=== PATIENT | female | born 1945 | race Caucasian/White ===

== ENCOUNTER 2017-02-10 09:02 | Outpatient (CLI) | payer MEDICARE, OTHER ==
[~2017-02-10] VITALS: Ht 158.8 cm; Wt 81.4 kg
--- NOTE | ~2017-02-10 | HEMODYNAMI ---
PATIENT:JACQUI WEATHERS MEDICAL RECORD: [id number] : 45 LOCATION:DTEJAL ADMISSION DATE: 02/10/17 Generatedon:02/10/201714:54 Patient name: JACQUI WEATHERS Patient #: [id number] SSN: : 1945 Date of study: 02/10/2017 Page: Of Hemodynamic Procedure Report Patient Data Patient Demographics Procedure consent was obtained First Name: JACQUI Gender: Female Last Name: JASIEL : 1945 [facility] Initial: C Age: 71 year(s) Patient #: [id number] Race: Unknown Additional ID: [id number] Contact details [address]: [address] [place] [address] State: [place] City: [place] Zip code: [address] Past Medical History Allergies Allergen Reaction Date Comments Reported Iodine 02/10/2017 Sulfa drugs 02/10/2017 Admission Admission Data Admission Date: 02/10/2017 Admission Time: 9:02 Height (in.): 64 BSA: 1.87 (m2) Height (cm.): 162.56 BMI: 30.72 (kg/m2) Weight (lbs.): 179 Weight (kg.): 81.19 Lab Results Lab Result Date: 02/10/2017 Lab Result Time: 0:00 Biochemistry Name Units Result Min Max BUN mg/dl 21 --(----)-* 7 18 Creatinine mg/dl 0.8 --(-*--)-- 0.6 1.3 CBC Name Units Result Min Max Hemoglobin g/dl 12.1 *-(----)-- 13.5 17.5 Procedure Procedure Types Cath Procedure Diagnostic Procedure [facility] w/Coronaries PCI Procedure Coronary Stent Initial Miscellaneous Procedures Moderate Sedation up to 15 minutes Procedure Description Procedure Date Procedure Date: 02/10/2017 Procedure Start Time: 14:38 Procedure End Time: 14:54 Procedure Staff Name Function Rob Gutierrez MD Performing Physician Ligia Brower RT Scrub Maico Gan RN Nurse Kamari Lamb RT Monitor Procedure Data Cath Procedure Fluoroscopy Diagnostic fluoroscopy Total fluoroscopy Time: 3.7 time: 3.7 min min Diagnostic fluoroscopy Total fluoroscopy dose: 726 dose: 726 mGy mGy Contrast Material Contrast Material Type Amount (ml) Isovue 300 91 Entry Location Entry Primary Successful Side Size Upsize Upsize Entry Closure Castillo ccessful Closure Location (Fr) 1 (Fr) 2 (Fr) Remarks Device Remarks Radial Right 6 Fr Mechanical artery Short Compression Estimated blood loss: 10 ml Diagnostic catheters Device Type Used For End Catheter Placement Terumo 5Fr Dale 110cm Procedure catheter Procedure Medications Medication Administration Route Dosage Oxygen NC 2 l/min Heparin Flush Bag added to field 2 bags (1000units/500ml NS) 0.9% NaCl I.V. 100 ml/hr Radial Cocktail added to field 1 syringe (Verapomil 2mg/Nitro 400mcg/Heparin 1500units) Fentanyl I.V. 50 mcg Versed I.V. 1 mg Fentanyl I.V. 50 mcg Versed I.V. 1 mg Radial Cocktail I.A. 1 syringe (Verapomil 2mg/Nitro 400mcg/Heparin 1500units) Heparin Bolus I.V. 4000 units Hemodynamics Rest BSA: 1.87 (m2) HGB: 12.1 (g/dl) O2 Consumption: Estimated: 174.56 (ml/min) O2 Co nsumption indexed: Estimated:93.35 (ml/min/m) Heart Rate: 74 (bpm) Pressure Samples Time Site Value (mmHg) Purpose Heart Use Rate(bpm) 14:41 LV 107/7,13 Snapshot 78 Snapshots Pre Cath Intra NCS Post Cath Vital Signs Time Heart Resp SPO2 NIBP (mmHg) Rhythm Pain Sedation Rate (ipm) (%) Status Level (bpm) 14:26:18 72 18 94 134/70(125) NSR 0 (11) 10(A) , No pain 14:30:30 70 18 94 115/66(88) NSR 0 (11) 10(A) , No pain 14:34:47 67 18 96 106/61(82) NSR 0 (11) 10(A) , No pain 14:38:54 72 17 96 121/69(95) NSR 0 (11) 9(A) , No pain 14:43:10 74 17 94 111/62(78) NSR 0 (11) 9(A) , No pain 14:47:22 74 17 94 109/61(85) NSR 0 (11) 9(A) , No pain 14:51:34 73 17 95 110/62(84) NSR 0 (11) 9(A) , No pain 14:53:15 73 17 95 112/57(93) NSR 0 (11) 9(A) , No pain Medications Time Medication Route Dose Verified Delivered Reason Notes Effectiveness by by 14:29:21 Oxygen NC 2 l/min Maico Nina Per Malik Gan RN physician RN 14:29:29 Heparin Flush added 2 bags Maico Nina used for Bag to Malik Gan RN procedure (1000units/500ml RN NS) 14:29:39 0.9% NaCl I.V. 100 Maico Nina Per ml/hr Malik Gan RN physician RN 14:29:46 Radial Cocktail added 1 Maico Nina used for (Verapomil to syringe Malik Gan RN procedure 2mg/Nitro RN 400mcg/Heparin 1500units) 14:35:54 Fentanyl I.V. 50 mcg Maico Nina for sedation Malik Gan RN RN 14:36:01 Versed I.V. 1 mg Maico Nina for sedation Malik Gan RN RN 14:40:30 Fentanyl I.V. 50 mcg Maico Gandhiy for sedation Malik Gan RN RN 14:40:33 Versed I.V. 1 mg Maico Nina for sedation Malik Gan RN RN 14:40:40 Radial Cocktail I.A. 1 Maico Rivas for (Verapomil syringe Malik Gutierrez MD vasodilation 2mg/Nitro RN 400mcg/Heparin 1500units) 14:46:19 Heparin Bolus I.V. 4000 Maico Nina for units Malik Gan RN antiplatelet RN therapy Procedure Log Time Note 14:10:00 Ligia MONTES(R) sent for patient. Start room use. 14:11:39 Patient Height : 162.56 cm 14:11:45 Patient Weight : 81.19 kg 14:25:10 Vital chart was started 14:26:56 Diagnostic Cath status Elective 14:27:13 Time tracking: Regular hours 14:27:18 Plan of Care:Hemodynamics will remain stable., Cardiac rhythm will remain stable., Comfort level will be maintained., Respiratory function will remain adequate., Patient/ family verbilizes understanding of procedure., Procedure tolerated without complication., Recovers from procedure without complications.. 14:27:23 Patient received from Pre/Post Procedure Room to CCL 2 Alert and oriented. Tansferred to table in Supine position. 14:27:25 Warm blankets applied, and alfa hugger turned on for patient comfort. 14::26 Correct patient and procedure confirmed by team. 14::28 Signed procedure consent form obtained from patient. 14::29 ECG and BP/O2 sat monitors applied to patient. 14:27:30 Baseline sample Acquired. 14:27:36 Rhythm: sinus rhythm 14::37 Full Disclosure recording started 14::58 H&P Date Dictated: 02/07/2017 Within 30 days and on chart., H&P Addendum completed by physician on day of procedure. (MUST COMPLETE FOR ALL OUTPATIENTS). 14:28:00 Pre-procedure instructions explained to patient. 14:28:03 Pre-op teaching completed and patient verbalized understanding. 14:28:11 Family in waiting room. 14:28:13 Patient NPO since Midnight. 14:28:21 Patient allergic to Iodine 14:28:25 Patient allergic to Sulfa drugs 14:28:38 Is the patient allergic to Iodine/contrast media? Yes. 14:28:39 Was the patient premedicated? Yes 14:28:41 Is patient on blood thinner?Yes 14:28:44 ACC The patient was administered the following blood thiners within the last 24 hours: ACCPlavix 14:29:21 Oxygen 2 l/min NC was administered by Maico Gan RN; Per physician; 14:29:29 Heparin Flush Bag (1000units/500ml NS) 2 bags added to field was administered by Maico Gan RN; used for procedure; 14::39 0.9% NaCl 100 ml/hr I.V. was administered by Maico Gan RN; Per physician; 14:29:46 Radial Cocktail (Verapomil 2mg/Nitro 400mcg/Heparin 1500units) 1 syringe added to field was administered by Maico Gan RN; used for procedure; 14:29:59 Patient diabetic? No. 14:30:02 Patient not . Patient is over age 55. 14:30:04 ----Pre-sedation anethsthesia assessment.---- 14:30:06 Previous problem with sedation/anesthesia? No ? 14:30:07 Snore? Yes 14:30:09 Sleep apnea? No 14:30:10 Deviated septum? No 14:30:10 Opens mouth fully? Yes 14:30:12 Sticks out tongue? Yes 14:30:14 Airway obstruction? No ? 14:30:18 Dentures? No ? 14:30:24 Pre procedure: right dorsailis pedis pulse 1+ Palpable, but thready & weak; easily obliterated 14:30:28 Modified Jose's test Ulnar < 7 seconds 14:30:31 Patient pain scale 0/10 ?. 14:30:37 IV patent on arrival in left wrist with 0.9% NaCl at [facility]. 14:33:28 Lab Result : BUN 21 mg/dl 14:33:28 Lab Result : Hemoglobin 12.1 g/dl 14:33:28 Lab Result : Creatinine 0.8 mg/dl 14:33:33 Lab results completed and on chart. 14:33:38 Right Radial & Right Groin area was prepped with chlora-prep and draped in sterile fashion 14:33:40 Alarms reviewed by R. N. 14:33:41 Sharps counted by scrub and verified by R.N. 14:33:56 Use device set Radial Dx 14:33:57 Acist Syringe opened to sterile field. 14:33:58 Medline Cath Pack opened to sterile field. 14:33:59 Bag Decanter opened to sterile field. 14:33:59 Terumo 6Fr Slender Glidesheath opened to sterile field. 14:34:00 St Juliano 260cm J .035 wire opened to sterile field. 14:34:01 Acist Hand Control opened to sterile field. 14:34:01 Acist Manifold opened to sterile field. 14:34:02 Tegaderm 4 x 4 opened to sterile field. 14:34:03 MBrace Wrist Support opened to sterile field. 14:34:43 Physician arrived 14:34:44 --------ALL STOP TIME OUT------ 14:34:44 Final Timeout: patient, procedure, and site verified with staff and physician. All members of the team are in agreement. 14:34:47 Right Radial & Right Groin site verified by team. 14:34:52 Physical assessment completed. ASA score P 2 - A patient with mild systemic disease as per Rob Gutierrez MD. 14:35:00 Sedation plan: IV Moderate Sedation Versed, Fentanyl 14:35:54 Fentanyl 50 mcg I.V. was administered by Maico Gan RN; for sedation; 14:36:01 Versed 1 mg I.V. was administered by Maico Gan RN; for sedation; 14:38:47 Procedure started. 14:38:54 Local anesthetic to right radial artery with Lidocaine 2% by Rob Gutierrez MD.INITIAL ACCESS ONLY 14:39:59 A 6 Fr Short sheath was inserted into the Right Radial artery 14:40:30 Fentanyl 50 mcg I.V. was administered by Maico Gan RN; for sedation; 14:40:33 Versed 1 mg I.V. was administered by Maico Gan RN; for sedation; 14:40:40 Radial Cocktail (Verapomil 2mg/Nitro 400mcg/Heparin 1500units) 1 syringe I.A. was administered by Rob Gutierrez MD; for vasodilation; 14:40:45 A Amind 5Fr Dale 110cm catheter was advanced over the wire and used for Procedure. 14:40:52 Zero performed for pressure channel P1 14:41:35 LV hemodynamics recorded. 14:41:36 LV gram done using CASE 14:41:44 EF : 60 % 14:42:25 LCA angiography performed. 14:44:37 RCA angiography performed. 14:44:47 Merit BasixCompak Inflation Kit opened to sterile field. 14:44:48 Juarez Whisper J 300cm 0.014 guide wire opened to sterile field. 14:44:51 Cordis 6FR XBLAD 3.5 guide catheter opened to sterile field. 14:44:54 Catheter removed. 14:44:54 Proceeding to intervention. 14:45:25 Procedure type changed to Cath procedure, Diagnostic procedure, LHC, LHC w/Coronaries, PCI procedure, Coronary Stent Initial, Miscellaneous Procedures, Moderate Sedation up to 15 minutes 14:46:19 Heparin Bolus 4000 units I.V. was administered by Maico Gan RN; for antiplatelet therapy; 14:46:23 6 Fr XBLAD 3.5 guide catheter was inserted over the wire 14:46:38 LESION IN THE DIAGONAL 14:46:45 WHISPER wire advanced. 14:46:56 Wire advanced across lesion. 14:49:13 Inflation Number: 1 A Conner OTW 2.5 x 15 stent was prepped and advanced across the 1st Diag. The stent was deployed at 9 CRISTINO for 0:10 (min:sec). 14:50:42 Stent catheter was removed intact over wire. 14:50:43 Wire removed. 14:50:48 Guide catheter removed. 14:51:15 Terumo TR Band Standard opened to sterile field. 14:51:27 Sheath removed intact; hemostasis achieved with Mechanical Compression to the Right Radial artery. 14:51:29 Procedure ended.(Physican Out) 14:51:40 Fluoroscopy time 03.70 minutes. 14:51:44 Fluoroscopy dose: 726 mGy 14:51:44 Flurop Dose total: 726 14:51:49 Contrast amount:Isovue 300 91ml. 14:51:58 TR band inflated with 10cc of air. 14:52:43 Insertion/operative site no bleeding no hematoma. 14:52:49 Post right radial artery:stable 14:52:55 Post-procedure physical assessment completed. ASA score P 2 - A patient with mild systemic disease as per Rob Gutierrez MD. 14:52:58 Post procedure rhythm: sinus rhythm 14:53:10 Estimated blood loss: 10 ml 14:53:14 Post procedure instruction explained to patient.Patient verbalizes understanding. 14:53:15 Patient needs reinforcement of post procedure teaching. 14:53:35 Procedure and supply charges have been captured, reviewed, submitted and are correct. 14:53:48 Vital chart was stopped 14:53:49 See physician's report for complete and final results. 14:53:51 Report given to Pre/Post Procedure Room. 14:53:54 Patient transfered to Pre/Post Procedure Room with Stretcher. 14:54:02 Procedure ended. 14:54:02 Full Disclosure recording stopped 14:54:07 End room use (Document Last) Intervention Summary Intervention Notes Time ActionType Lesion and Equipment Action# Pressure Duration Attributes Used 14:49:13 Place stent 1st Diag Alcolu OTW 1 9 00:10 2.5 x 15 stent Device Usage Item Name Manufacture Quantity Catalog Hospital Part Current Minimal Lot# / Number Charge Number Stock Stock Serial# Code Acist Acist 1 64181 646742 938306 570504 20 Syringe Medical Systems Inc Medline Cardinal 1 [id number] 129298 25335 918400 5 Cath Pack Health Bag Microtek 1 2001S 414732 12641 705331 5 Decanter Medical Inc. Terumo 6Fr Terumo 1 [id number] 416157 764868 325324 [address] St Juliano 1 896676 647915 773442 441854 30 260cm J .035 wire Acist Hand Acist 1 71252 361408 085691 068844 5 Control Medical Systems Inc Acist Acist 1 22396 787334 708974 591195 5 Manifold Medical Systems Inc Tegaderm 4 3M 1 1626W 430788 258881 691546 5 x 4 MBrace Advanced 1 140-0250-00 240467 25875 026169 5 Wrist Vascular Support Dynamics Terumo 5Fr Terumo 1 405023 640973 070673 380560 5 Dale 110cm catheter Merit Merit 1 [id number] 682352 190909 872758 15 BasixCompak Medical Inflation Kit Juarez Juarez 1 [id number] 010388 349721 312577 5 Whisper J Vascular 300cm 0.014 guide wire Cordis 6FR Cardinal 1 [id number] 913728 221248 689225 10 XBLAD 3.5 Health guide catheter Alcolu OTW Medtronic 1 [id number] 396953 50853 482214 5 [id number] 2.5 x 15 stent Terumo TR Terumo 1 [id number] 930058 744723 951230 40 Band Standard Signature Audit [place] Stage Time Signature Unsigned Intra-Procedure 02/10/2017 Kamari Lamb 2:54:33 PM RT(R) (CV) Signatures Monitor : Kamari Lamb RT Signature : Date : Time : [facility] [address] [facility] [place] [address]
[~2017-02-10 09:02] MED LIST: BAYER CHEWABLE81 MG PO; BENICAR HCT 40-1 TA1 PO; PLAVIX75 MG PO; TRIGLIDE160 MG PO
[2017-02-10] MEDS ORDERED: PREDNISONE1 MG PO (10:48)
[2017-02-10] MEDS ORDERED: K-TAB10 MEQ PO (10:49)
[2017-02-10] MEDS ORDERED: ZOVIRAX800 MG PO (10:50)
[2017-02-10 10:57] VITALS: BP 152/68; Ht 158.8 cm; Wt 81.4 kg
[2017-02-10 11:21] LABS: BASOPHILS 0.2 % (0-2); EOSINOPHILS 2.7 % (0-7); HEMATOCRIT 37.3 % (36.0-48.0); HEMOGLOBIN 12.1 g/dL (12-16); IMMATURE GRANULOCYTES 0.2 % (0-5); LYMPHOCYTES 21.8 % (15-50); MCH 30.9 pg (26.0-34.0); MCHC 32.4 g/dL (31.0-37.0); MCV 95.4 fL (80.0-100.0); MEAN PLATELET VOLUME 9.2 fL (7.4-10.4); MONOCYTES 9.6 % (2-11); NEUTROPHILS 65.5 % (40-80); PLATELET COUNT 259 10x3/uL (130-400); RBC 3.91 10x6/uL (4.00-5.40); RDW 13.9 % (11.5-14.5); WBC 8.5 10x3/uL (4.8-10.8)
[2017-02-10 11:52] LABS: CALC OSMOLALITY 283 mosm/kg (275-300); CARBON DIOXIDE 29.4 mmol/L (21.0-32.0); CHLORIDE - SERUM 104 mmol/L (98-107); CREATINE KINASE 80 UL (21-215); CREATININE - SERUM 0.8 mg/dL (0.6-1.3); GLUCOSE 92 mg/dL (74-106); POTASSIUM - SERUM 3.5 mmol/L (3.5-5.1); SODIUM 141 mmol/L (136-145); UREA NITROGEN 21 mg/dL (7-18); eGFR NON AFRICAN AMERICAN 75 mL/min (90-120)
[2017-02-10 11:55] LABS: TROPONIN-I < 0.017 ng/mL (0.000-0.060)
[2017-02-10 12:28] LABS: CKMB 1.2 U/L (0.0-3.6)
--- NOTE | 2017-02-10 15:20 | NUR ---
2L NC, NO RESP DISTRESS NOTED. RIGHT WRIST TR BAND CDI, NO BLEEDING OR HEMATOMA NOTED. SANDWICH TRAY AND DRINK GIVEN, NO C/O NAUSEA. DENIES ANY CHEST PAIN. VSS. CALL LIGHT WITHIN REACH.
--- NOTE | 2017-02-10 15:50 | NUR ---
RESTING QUIETLY. 2L NC, NO RESP DISTRESS. RIGHT WRIST TR BAND CDI, NO BLEEDING OR HEMATOMA NOTED. DENIES ANY CHEST PAIN OR NAUSEA. VSS. CALL LIGHT WITHIN REACH.
--- NOTE | 2017-02-10 16:05 | NUR ---
2L NC, NO RESP DISTRESS. RIGHT WRIST TR BAND CDI, NO BLEEDING NOTED. NO NEEDS VOICED AT THIS TIME. VSS. WILL CONTINUE TO MONITOR.
--- NOTE | 2017-02-10 16:35 | NUR ---
QUIETLY RESTING WITH NO C/O. RIGHT WRIST TR BAND CDI, NO BLEEDING NOTED. VSS.
--- NOTE | 2017-02-10 17:05 | NUR ---
ROOM AIR, NO RESP DISTRESS. RIGHT WRIST TR BAND CDI, NO BLEEDING NOTED. NO C/O PAIN OR NAUSEA. VSS. FAMILY AT BEDSIDE.
--- NOTE | 2017-02-10 18:00 | NUR ---
2CC OF AIR REMOVED FROM TR BAND, NO BLEEDING NOTED.
--- NOTE | 2017-02-10 18:16 | NUR ---
3CC OF AIR REMOVED FROM TR BAND, NO BLEEDING NOTED.
--- NOTE | 2017-02-10 18:30 | NUR ---
3CC OF AIR REMOVED FROM TR BAND, NO BLEEDING NOTED. UP TO RESTROOM TO VOID.
--- NOTE | 2017-02-10 18:45 | NUR ---
LEFT AC PIV D/C'D WITH CATHETER INTACT, BAND AID TO SITE. UP TO GET DRESSED.
--- NOTE | 2017-02-10 18:52 | NUR ---
DISCHARGE INSTRUCTIONS GIVEN, VERBALIZED UNDERSTANDING.
--- NOTE | 2017-02-10 19:00 | NUR ---
TAKEN OUT VIA WHEELCHAIR BY CATH WAISTLINE JOINER LOCKSTITCH. LEFT FACILITY WITH FAMILY MEMBER AND ALL PERSONAL BELONGINGS.
--- NOTE | 2017-02-17 09:42 | OP ---
PATIENT NAME: JACQUI WEATHERS MEDICAL RECORD: [id number] :45 LOCATION:D.CAT ADMISSION DATE: SURGEON: GUNNER GLYNN MD DATE OF OPERATION: 02/10/2017 PROCEDURES: 1. PTCA stent LAD diagonal. 2. Left heart catheterization. 3. Selective coronary angiography. 4. Left ventriculogram. INDICATION: Angina and coronary artery disease. PROCEDURE IN DETAIL: After informed consent was obtained and after a detailed explanation of risks, benefits as well as alternative therapies, the patient elected to proceed with angiogram and angioplasty. The right radial area was prepped and draped in normal sterile fashion. The right radial artery was cannulated via modified Seldinger technique with placement of 6-Malay sheath. All catheters exchanged through this sheath. FINDINGS: The left ventriculogram was performed in standard 30-degree CASE view, reveals good cardiac wall motion throughout all segments. Overall ejection fraction estimated 60%. SELECTIVE CORONARY ANGIOGRAPHY: 1. Left main showed no significant angiographic disease. 2. Left anterior descending has previously placed stent. This is widely patent. However, the LAD diagonal, which is actually larger than the LAD has 80% stenosis. 3. The left circumflex has moderate irregularities, but no flow-limiting stenosis. 4. Right coronary has moderate irregularities, but no flow-limiting stenosis. PTCA STENT OF THE LAD DIAGONAL: The stent used was a 2.5 x 15 mm Conner. The result was 0% residual stenosis. OVERALL IMPRESSION: Successful percutaneous transluminal coronary angioplasty stent of the left anterior descending diagonal going from 80% initial stenosis to 0% residual stenosis. TRANSINT:[id number] Voice Confirmation ID: [id number] DOCUMENT ID: [id number] GUNNER GLYNN MD at 0942 CC: [id number] DICTATION DATE: 02/10/17 1457 TANK TRUCK DRIVER: 02/10/17 2209 [facility] CLI 02/10/17 [place] [id number] [place] [address]
== END 2017-02-10 19:00 | disposition home or self-care (01) ==
LOC: D.CATH 09:02
PROVIDERS: Internal Medicine Interventional Cardiology
DX: I25.119 Atherosclerotic heart disease of native coronary artery with unspecified angina pectoris (principal); I10 Essential (primary) hypertension; E78.5 Hyperlipidemia, unspecified; Z01.812 Encounter for preprocedural laboratory examination
CPT/HCPCS: 93458; C9600

== ENCOUNTER 2017-09-15 09:07 | Outpatient (CLI) | payer MEDICARE, OTHER ==
[~2017-09-15] VITALS: Ht 160 cm; Wt 79.1 kg
--- NOTE | ~2017-09-15 | OP ---
PATIENT NAME: JACQUI WEATHERS MEDICAL RECORD: [id number] :45 LOCATION:D.CAT ADMISSION DATE: SURGEON: GUNNER GLYNN MD DATE OF OPERATION: 09/15/2017 PROCEDURES: 1. PTCA stent LAD. 2. PTCA LAD diagonal. 3. Left heart catheterization. 4. Selective coronary angiography. 5. Left ventriculogram. INDICATION: Angina and coronary artery disease. PROCEDURE IN DETAIL: After informed consent was obtained and after a detailed explanation of risks, benefits as well as alternative therapies, the patient elected to proceed with angiogram and angioplasty. The right radial area was prepped and draped in normal sterile fashion. Right radial artery was cannulated via modified Seldinger technique with placement of a 6-Austrian sheath. All catheters exchanged through this sheath. FINDINGS: The left ventriculogram was performed in standard 30-degree CASE view, reveals good cardiac wall motion throughout all segments. Overall ejection fraction estimated at 60%. SELECTIVE CORONARY ANGIOGRAPHY: 1. Left main is with no significant angiographic disease. 2. Left anterior descending has previously placed stent that is widely patent as is the diagonal. The LAD has 70+ percent stenosis after the previously placed stent. 3. Right coronary artery has moderate irregularities, but no flow-limiting stenosis. 4. The left circumflex has moderate irregularities, but no flow-limiting stenosis. PTCA STENT OF THE LAD: The stent used is a 2.5 x 8 mm Conner. This caused plaque shift into the diagonal. We ballooned this with a 2.5 balloon. Result was 0% residual throughout. OVERALL IMPRESSION: Successful percutaneous transluminal coronary angioplasty stent of the left anterior descending going from 80% initial stenosis to 0% residual. TRANSINT:[id number] Voice Confirmation ID: [id number] DOCUMENT ID: [id number] GUNNER GLYNN MD at 1202 CC: [id number] DICTATION DATE: 09/15/17 1308 RN MEDICAL INPATIENT SERVICES: 09/15/17 1319 [facility]P CLI 09/15/17 [place] [id number]
--- NOTE | ~2017-09-15 | HEMODYNAMI ---
PATIENT:JACQUI WEATHERS MEDICAL RECORD: [id number] : 45 LOCATION:[facility] ADMISSION DATE: 09/15/17 Generatedon:09/15/201713:08 Patient name: JACQUI WEATHERS Patient #: [id number] : 1945 Date of study: 09/15/2017 Page: Of Hemodynamic Procedure Report Patient Data Patient Demographics Procedure consent was obtained First Name: JACQUI Gender: Female Last Name: JASIEL : 1945 Middle Initial: C Age: 72 year(s) Patient #: [id number] Race: Ethnicity: or SSN: [id number] Additional ID: [id number] Contact details [address]: [address] [place] [address] State: [place] City: [place] Zip code: [address] Past Medical History Allergies Allergen Reaction Date Comments Reported Iodine 02/10/2017 Sulfa drugs 02/10/2017 Other allergy 09/15/2017 Sulfa, Betadine Admission Admission Data Admission Date: 09/15/2017 Admission Time: 9:07 Arrival Date: 09/15/2017 Arrival Time: 11:00 Admit Source: Other Insurance Payor: Medicare Height (in.): 64 BSA: 1.85 (m2) Height (cm.): 162.56 BMI: 30.04 (kg/m2) Weight (lbs.): 175 Weight (kg.): 79.38 Lab Results Lab Result Date: 09/15/2017 Lab Result Time: 0:00 Biochemistry Name Units Result Min Max BUN mg/dl 27 --(----)-* 7 18 Creatinine mg/dl 0.7 --(*---)-- 0.6 1.3 CBC Name Units Result Min Max Hemoglobin g/dl 12.1 *-(----)-- 13.5 17.5 Procedure Procedure Types Cath Procedure Diagnostic Procedure LHC [facility] w/Coronaries Sedation Charges Moderate Sedation up to 15 minutes PCI Procedure Coronary Stent Coronary Stent Initial PTCA PTCA Additional Procedure Description Procedure Date Procedure Date: 09/15/2017 Procedure Start Time: 12:46 Procedure End Time: 13:06 Procedure Staff Name Function Rob Gutierrez MD Performing Physician Jessica Black RT Monitor Heron Linares RN Nurse Ligia Brower RT Scrub Procedure Data Cath Procedure Fluoroscopy Diagnostic fluoroscopy Total fluoroscopy Time: 6.1 time: 6.1 min min Diagnostic fluoroscopy Total fluoroscopy dose: 620 dose: 620 mGy mGy Contrast Material Contrast Material Type Amount (ml) Isovue 300 86 Entry Location Entry Primary Successful Side Size Upsize Upsize Entry Closure Castillo ccessful Closure Location (Fr) 1 (Fr) 2 (Fr) Remarks Device Remarks Radial Right 6 Fr Mechanical artery Short Compression Estimated blood loss: 5 ml Diagnostic catheters Device Type Used For End Catheter Placement DIAGNOSTIC [place] 110cm 5 Multi-vessel Fr catheter ([id number]) Angiography Procedure Complications No complications Procedure Medications Medication Administration Route Dosage Oxygen NC 2 l/min Lidocaine 2% added to field 20 Heparin Flush Bag added to field 2 bags (1000units/500ml NS) 0.9% NaCl I.V. 100 ml/hr Zofran I.V. 4 mg Versed I.V. 1 mg Fentanyl I.V. 50 mcg Radial Cocktail I.A. 1 syringe (Verapomil 2mg/Nitro 400mcg/Heparin 1500units) Versed I.V. 1 mg Fentanyl I.V. 50 mcg Heparin Bolus I.V. 4000 units Fentanyl I.V. 50 mcg Hemodynamics Rest BSA: 1.85 (m2) O2 Consumption: Estimated: 167.3 (ml/min) O2 Consumption indexed: Estimated:90.43 (ml/min/m) Heart Rate: 67 (bpm) Pressure Samples Time Site Value (mmHg) Purpose Heart Use Rate(bpm) 12:49 LV 62/37,48 Snapshot 62 Snapshots Pre Cath Intra NCS Post Cath Vital Signs Time Heart Resp SPO2 etCO2 NIBP Rhythm Pain Sedation Rate (ipm) (%) (mmHg) (mmHg) Status Level (bpm) 12:39:30 52 25 96 37.1 100/63(75) NSR 0 (11) 10(A) , No pain 12:43:35 53 14 98 34.8 106/63(75) NSR 0 (11) 10(A) , No pain 12:47:43 58 25 99 40 119/67(90) NSR 0 (11) 9(A) , No pain 12:51:53 59 16 94 37.8 92/51(69) NSR 0 (11) 9(A) , No pain 12:55:59 57 15 96 39.3 102/56(76) NSR 0 (11) 9(A) , No pain 13:00:09 58 16 97 38.6 99/54(71) NSR 0 (11) 9(A) , No pain 13:04:17 58 16 97 39.3 97/60(75) NSR 0 (11) 10(A) , No pain Medications Time Medication Route Dose Verified Delivered Reason Note s Effectiveness by by 12:31:38 Oxygen NC 2 l/min Rob Buffie used for Brenda Linares RN procedure 12:31:44 Lidocaine 2% added 20ml Rob Rob for local to vial Brenda Gutierrez MD anesthetic field 12:31:54 Heparin Flush added 2 bags Robben Rivas used for Bag to Brenda Gutierrez MD procedure (1000units/500ml field NS) 12:32:03 0.9% NaCl I.V. 100 Robben Phippsie Per physician ml/hr Brenda Linares RN 12:32:18 Zofran I.V. 4 mg Rob Shelby Per physician pt Brenda Linares RN states history of vomiting with sedation 12:45:26 Versed I.V. 1 mg Rob Phippsie for sedation Brenda Linares RN 12:45:33 Fentanyl I.V. 50 mcg Rob Shelby for sedation Brenda Linares RN 12:48:23 Radial Cocktail I.A. 1 Rob Rob for (Verapomil syringe Brenda Gutierrez MD vasodilation 2mg/Nitro 400mcg/Heparin 1500units) 12:48:54 Versed I.V. 1 mg Rob Phippsie for sedation Brenda Linares RN 12:48:57 Fentanyl I.V. 50 mcg Rob Phippsie for sedation Brenda Linares RN 12:52:22 Heparin Bolus I.V. 4000 Robben Phippsie for veri fied units Brenda Linares RN anticoagulation with dr gutierrez 12:58:20 Fentanyl I.V. 50 mcg Rob Phippsie for sedation Brenda Linares RN Procedure Log Time Note 12:15:27 Informed consent obtained and on chart 12:20:32 Patient Height : 64 inches 12:20:37 Patient Weight : 175 lbs 12:20:47 Diagnostic Cath status Elective 12:20:51 Jessica Black RT(R) sent for patient. Start room use. 12:20:52 Time tracking: Regular hours 12:20:58 Plan of Care:Hemodynamics will remain stable., Cardiac rhythm will remain stable., Comfort level will be maintained., Respiratory function will remain adequate., Patient/ family verbilizes understanding of procedure., Procedure tolerated without complication., Recovers from procedure without complications.. 12:21:03 Patient received from Pre/Post Procedure Room to CCL 2 Alert and oriented. Tansferred to table in Supine position. 12:21:04 Warm blankets applied, and alfa hugger turned on for patient comfort. 12:21:07 Correct patient and procedure confirmed by team. 12:21:34 H&P Date Dictated: 09/12/2017 Within 30 days and on chart.. 12:23:22 Family in waiting room. 12:23:23 Patient NPO since Midnight. 12:24:01 Patient allergic to Other allergySulfa, Betadine 12:31:38 Oxygen 2 l/min NC was administered by Heron Linares RN; used for procedure; 12::44 Lidocaine 2% 20ml vial added to field was administered by Rob Gutierrez MD; for local anesthetic; 12:31:54 Heparin Flush Bag (1000units/500ml NS) 2 bags added to field was administered by Rob Gutierrez MD; used for procedure; 12:32:03 0.9% NaCl 100 ml/hr I.V. was administered by Heron Linares RN; Per physician; 12:32:18 Zofran 4 mg I.V. was administered by Heron Linares RN; Per physician; pt states history of vomiting with sedation 12:32:21 Is the patient allergic to Iodine/contrast media? Yes. 12:32:21 Was the patient premedicated? Yes 12:32:24 Is patient on blood thinner?Yes 12:32:26 ACC The patient was administered the following blood thiners within the last 24 hours: ACCPlavix 12:32:30 Patient diabetic? No. 12:32:37 Previous problem with sedation/anesthesia? Yes nausea 12:32:43 Snore? Yes 12:32:44 Sleep apnea? No 12:32:45 Deviated septum? No 12:32:46 Opens mouth fully? Yes 12:32:46 Sticks out tongue? Yes 12:32:48 Airway obstruction? No ? 12:32:52 Dentures? No ? 12:32:56 Pre procedure: right dorsailis pedis pulse 2+ Normal; easily identifiable; not easily obliterated 12:32:58 Pre procedure: left dorsailis pedis pulse 2+ Normal; easily identifiable; not easily obliterated 12:32:59 Patient pain scale 0/10 ?. 12:33:06 IV patent on arrival in left antecubital with 0.9% NaCl at [facility]. 12:33:09 Lab results completed and on chart. 12:33:12 Right Radial & Right Groin area was prepped with chlora-prep and draped in sterile fashion 12:33:13 Alarms reviewed by R. N. 12:33:17 Sharps counted by scrub and verified by R.N. 12:37:08 Admit Source: Other 12:37:14 Arrival Date: 09/15/2017 11:00:00 AM 12:37:21 Insurance Payor : Medicare 12:38:25 Vital chart was started 12:39:08 Lab Result : Hemoglobin 12.1 g/dl 12:39:08 Lab Result : Creatinine 0.7 mg/dl 12:39:08 Lab Result : BUN 27 mg/dl 12:44:13 Physician arrived 12:44:14 --------ALL STOP TIME OUT------ 12:44:16 Final Timeout: patient, procedure, and site verified with staff and physician. All members of the team are in agreement. 12:44:18 Right Radial & Right Groin site verified by team. 12:44:20 Physical assessment completed. ASA score P 2 - A patient with mild systemic disease as per Rob Gutierrez MD. 12:44:25 Sedation plan: IV Moderate Sedation Medication:Versed, Fentanyl 12:44:32 Use device set Radial Dx or PCI 12:44:33 ACIST Syringe (42245) opened to sterile field. 12:44:34 Medline Cath Pack ([id number]) opened to sterile field. 12:44:34 Bag Decanter () opened to sterile field. 12:44:35 SHEATH 6FR Slender ([id number]) opened to sterile field. 12:44:35 DIAGNOSTIC WIRE .035 260cm J wire (039676) opened to sterile field. 12:44:36 ACIST Hand Control (49478) opened to sterile field. 12:44:36 ACIST Manifold (84492) opened to sterile field. 12:44:37 Tegaderm 4 x 4 (1626W) opened to sterile field. 12:44:37 MBrace Wrist Support ([id number]) opened to sterile field. 12:45:26 Versed 1 mg I.V. was administered by Heron Linares RN; for sedation; 12:45:33 Fentanyl 50 mcg I.V. was administered by Heron Linares RN; for sedation; 12:46:15 Procedure started. 12:46:16 Full Disclosure recording started 12:46:21 Local anesthetic to right radial artery with Lidocaine 2% by Rob Gutierrez MD.INITIAL ACCESS ONLY 12:46:30 A 6 Fr Short sheath was inserted into the Right Radial artery 12:46:48 Baseline sample Acquired. 12:47:13 A DIAGNOSTIC [place] 110cm 5 Fr catheter ([id number]) was advanced over the wire and used for Multi-vessel Angiography. 12:48:23 Radial Cocktail (Verapomil 2mg/Nitro 400mcg/Heparin 1500units) 1 syringe I.A. was administered by Rob Gutierrez MD; for vasodilation; 12:48:54 Versed 1 mg I.V. was administered by Heron Linares RN; for sedation; 12:48:57 Fentanyl 50 mcg I.V. was administered by Heron Linares RN; for sedation; 12:49:13 LV hemodynamics recorded. 12:49:14 LV gram done using CASE 12:49:17 Injector settings: Ml/sec: 5, Volume: 15, 12:49:22 EF : 60 % 12:49:26 LCA angiography performed. 12:49:28 Injector settings: Ml/sec: 3, Volume: 6, 12:49:57 RCA angiography performed. 12:50:00 Injector settings: Ml/sec: 3, Volume: 6, 12:51:35 Catheter removed. 12:51:36 Proceeding to intervention. 12:51:46 CHOICE PT Extra Support 182cm wire ([id number]) opened to sterile field. 12:51:48 INFLATOR Merit BasixCompak (MV8287) opened to sterile field. 12:52:08 GUIDE 6FR XBLAD 3.5 catheter ([id number]) opened to sterile field. 12:52:19 6 Fr xblad 3.5 guide catheter was inserted over the wire 12:52:22 Heparin Bolus 4000 units I.V. was administered by Heron Linares RN; for anticoagulation; verified with dr gutierrez 12:52:45 choice pt wire advanced. 12:53:18 Wire advanced across lesion. 12:55:22 The STONEY RX 2.5 x 08 stent ([id number]) was advanced then removed because of failure to cross lesion 12:57:20 CHOICE PT Extra Support 182cm wire ([id number]) opened to sterile field. 12:58:20 Fentanyl 50 mcg I.V. was administered by Heron Linares RN; for sedation; 12:58:56 choice pt wire advanced. 12:59:21 Inflation number: 1 A EUPHORA 2.5 x 10 Balloon ([id number]) was prepped and advanced across the Mid LAD, then inflated to 17 CRISTINO for 0:10 (min:sec). 12:59:27 Balloon removed over the wire. 13:00:43 Inflation Number: 2 A STONEY RX 2.5 x 08 stent ([id number]) was prepped and advanced across the Mid LAD. The stent was deployed at 17 CRISTINO for 0:10 (min:sec). 13:00:49 Inflation number: 3 The stent balloon was then re-inflated across the Mid LAD to 17 CRISTINO for 0:10 (min:sec). 13:01:06 Wire redirected to diagonal. 13:01:39 Inflation number: 1 The stent balloon was then re-inflated across the 1st Diag to 9 CRISTINO for 0:10 (min:sec). 13:02:30 Stent catheter was removed intact over wire. 13:02:31 Wire removed. 13:02:31 Guide catheter removed. 13:04:22 TR BAND Standard ([id number]) opened to sterile field. 13:04:38 Sheath removed intact; hemostasis achieved with Mechanical Compression to the Right Radial artery. 13:04:40 Procedure ended.(Physican Out) 13:05:10 Fluoroscopy time 06.10 minutes. 13:05:17 Flurop Dose total: 620 13:05:17 Fluoroscopy dose: 620 mGy 13:05:21 Contrast amount:Isovue 300 86ml. 13:05:22 Sharps counted by scrub and verified by R.N. 13:05:24 Insertion/operative site no bleeding no hematoma. 13:05:32 Post right radial artery:stable 13:05:33 Post Procedure Pulses reassessed and unchanged 13:05:35 Post procedure rhythm: unchanged. 13:05:38 Estimated blood loss: 5 ml 13:05:41 Post procedure instruction explained to patient.Patient verbalizes understanding. 13:05:42 Patient needs reinforcement of post procedure teaching. 13:06:07 Procedure type changed to Cath procedure, Diagnostic procedure, LHC, LHC w/Coronaries, Sedation Charges, Moderate Sedation up to 15 minutes, PCI procedure, Coronary Stent, Coronary Stent Initial, PTCA, PTCA Additional 13:06:08 Procedure and supply charges have been captured, reviewed, submitted and are correct. 13:06:12 Procedure Complication : No complications 13:06:37 Vital chart was stopped 13:06:39 See physician's report for complete and final results. 13:06:44 Report given to Pre/Post Procedure Room. 13:06:46 Patient transfered to Pre/Post Procedure Room with Stretcher. 13:06:48 Procedure ended. 13:06:48 Full Disclosure recording stopped 13:06:54 ACC-PCI Only Patient was given prescriptions, or instructed by Rob Gutierrez MD to start/continue the following medications upon discharge: Plavix 13:06:55 End room use (Document Last) Intervention Summary Intervention Notes Time ActionType Lesion and Equipment Used Action# Pressure Duration Attributes 12:55:22 Discard STONEY RX 2.5 x Stent 08 stent ([id number]) 12:59:21 Inflate Mid LAD EUPHORA 2.5 x 1 17 00:10 balloon 10 Balloon ([id number]) 13:00:43 Place stent Mid LAD STONEY RX 2.5 x 2 17 00:10 08 stent ([id number]) 13:00:49 Reinflate Mid LAD STONEY RX 2.5 x 3 17 00:10 stent 08 stent balloon ([id number]) 13:01:39 Reinflate 1st Diag STONEY RX 2.5 x 1 9 00:10 stent 08 stent balloon ([id number]) Device Usage Item Name Manufacture Quantity Catalog Number Hospital Part Current M inimal Lot# / Charge Number Stock Stock Serial# Code ACIST Syringe Acist 1 21653 706504 491709 002767 2 0 (31510) Medical Systems Inc Medline Cath Cardinal 1 [id number] 627694 72722 650794 5 Pack Health ([id number]) Bag Decanter Microtek 1 287046 66224 278689 5 () Medical Inc. SHEATH 6FR Terumo 1 [id number] 477330 370177 920437 4 0 Slender ([id number]) DIAGNOSTIC St Jul[place] 1 101890 435371 459687 906564 3 0 WIRE .035 260cm J wire (139622) ACIST Hand Acist 1 13108 397686 585902 661287 5 Control Medical (74207) Systems Inc ACIST Manifold Acist 1 82602 886444 076259 151764 5 (33131) Medical Systems Inc Tegaderm 4 x 4 3M 1 1626W 154713 579731 323152 5 (1626W) MBrace Wrist Advanced 1 140-0250-00 734166 66692 361720 5 Support Vascular ([id number]) Dynamics DIAGNOSTIC Terumo 1 405013 828951 409153 440089 5 [place] 110cm 5 Fr catheter (706473) CHOICE PT [place] 2 [id number] 652966 318001 860532 5 Extra Support Scientific 182cm wire ([id number]) INFLATOR Merit Merit 1 XZ1798 207493 096931 596471 1 5 NextUser (WR7242) GUIDE 6FR Cardinal 1 [id number] 967958 737732 403525 1 0 XBLAD 3.5 Health catheter (70641306) STONEY RX 2.5 x Medtronic 1 [id number] 438272 0927876 582474 5 [id number] 08 stent ([id number]) EUPHORA 2.5 x Medtronic 1 [id number] 708571 987995 393321 5 [id number] 10 Balloon ([id number]) TR BAND Terumo 1 [id number] 773175 084180 358895 4 0 Standard ([id number]) Signature Audit [place] Stage Time Signature Unsigned Intra-Procedure 09/15/2017 Jessica Black 1:08:05 PM RT(R) Signatures Monitor : Jessica Black RT Signature : Date : Time : [place] [id number] [place] [address]
[~2017-09-15 09:07] MED LIST changes: +K-TAB10 MEQ PO; +PREDNISONE1 MG PO; +ZOVIRAX800 MG PO
[2017-09-15] MEDS ORDERED: ALENDRONATE SOD70 MG PO (09:50)
[2017-09-15] MEDS ORDERED: CALCIUM 600 +1 EAC3 PO (09:51)
[2017-09-15] MEDS ORDERED: PEPCID AC20 MG PO (09:51)
[2017-09-15] MEDS ORDERED: VITAMIN D31000 UNI2 PO (09:51)
[2017-09-15] MEDS ORDERED: CENTRUM SILVER1 EAC3 PO (09:51)
[2017-09-15 10:00] VITALS: BP 136/61; Ht 160 cm; Wt 79.1 kg
[2017-09-15 10:23] LABS: BASOPHILS 0.2 % (0-2); EOSINOPHILS 1.4 % (0-7); HEMATOCRIT 36.9 % (36.0-48.0); HEMOGLOBIN 12.1 g/dL (12-16); IMMATURE GRANULOCYTES 0.2 % (0-5); LYMPHOCYTES 20.8 % (15-50); MCH 30.1 pg (26.0-34.0); MCHC 32.8 g/dL (31.0-37.0); MCV 91.8 fL (80.0-100.0); MEAN PLATELET VOLUME 9.7 fL (7.4-10.4); MONOCYTES 5.5 % (2-11); NEUTROPHILS 71.9 % (40-80); PLATELET COUNT 224 10x3/uL (130-400); RBC 4.02 10x6/uL (4.00-5.40); RDW 14.1 % (11.5-14.5); WBC 6.5 10x3/uL (4.8-10.8)
[2017-09-15 10:39] LABS: CALC OSMOLALITY 283 mosm/kg (275-300); CALCIUM 9.5 mg/dL (8.5-10.1); CHLORIDE - SERUM 105 mmol/L (98-107); CREATININE - SERUM 0.7 mg/dL (0.6-1.3); GLUCOSE 113 mg/dL (74-106); POTASSIUM - SERUM 3.9 mmol/L (3.5-5.1); SODIUM 139 mmol/L (136-145); UREA NITROGEN 27 mg/dL (7-18); eGFR NON AFRICAN AMERICAN 87 mL/min (90-120)
== END 2017-09-15 16:52 | disposition home or self-care (01) ==
LOC: D.CATH 09:07
PROVIDERS: Internal Medicine Interventional Cardiology
DX: I25.119 Atherosclerotic heart disease of native coronary artery with unspecified angina pectoris (principal); Z01.812 Encounter for preprocedural laboratory examination
CPT/HCPCS: 93458; 92921; C9600

== ENCOUNTER 2017-12-15 14:02 | Outpatient (CLI) | payer MEDICARE, OTHER ==
[2017-09-15 10:00] VITALS: BMI 30.8
[~2017-12-15 14:02] MED LIST changes: +ALENDRONATE SOD70 MG PO; +CALCIUM 600 +1 EAC3 PO; +CENTRUM SILVER1 EAC3 PO; +PEPCID AC20 MG PO; +VITAMIN D31000 UNI2 PO
== END 2017-12-15 23:59 | disposition home or self-care (01) ==
LOC: D.MAMMO 14:02
DX: Z12.31 Encounter for screening mammogram for malignant neoplasm of breast (principal)

== ENCOUNTER 2019-06-14 07:06 | Outpatient (CLI) | payer MEDICARE, OTHER ==
[~2019-06-14] VITALS: Ht 160 cm; Wt 75.9 kg
--- NOTE | ~2019-06-14 | OP ---
PATIENT NAME: JACQUI WEATHERS MEDICAL RECORD: [id number] :45 LOCATION:D.CAT ADMISSION DATE: SURGEON: GUNNER GLYNN MD DATE OF OPERATION: 06/14/2019 DATE OF SERVICE: 06/14/2019 PROCEDURES: 1. PTCA stent LAD diagonal. 2. Percutaneous transluminal coronary angioplasty stent right coronary artery PDA. 3. IFR LAD diagonal. 4. IFR RCA. 5. Left heart catheterization. 6. Selective coronary angiography. 7. Left ventriculogram. INDICATION: Unstable angina and coronary artery disease. PROCEDURE IN DETAIL: After informed consent was obtained and after a detailed description of the risks, benefits as well as alternative therapies, the patient elected to proceed with angiogram and angioplasty. The right radial area was prepped and draped in normal sterile fashion. Right radial artery was cannulated via modified Seldinger technique with placement of 6-Tajik sheath. All catheters exchanged through this sheath. FINDINGS: Left ventriculogram was performed in standard 30-degree CASE view, reveals good cardiac wall motion throughout all segments. Overall ejection fraction estimated 60%. SELECTIVE CORONARY ANGIOGRAPHY: 1. Left main is with no significant angiographic disease. 2. Left anterior descending has previously placed stents in the LAD and LAD diagonal. These are widely patent with no significant restenosis; however, after the diagonal stent, there is 70% stenosis and IFR is abnormal at 0.76. 3. The left circumflex has mild irregularities, but no flow-limiting stenosis. 4. Right coronary has 70% stenosis throughout the PDA times 3. IFR was abnormal at 0.72. PTCA STENT OF THE RCA PDA: Stents used were 2.25 x 30 and 2.0 x 8. Result was 0% residual stenosis. PTCA STENT OF THE LAD DIAGONAL: The stent used is a 2.5 x 8 mm Craig. Result was 0% residual stenosis. OVERALL IMPRESSION: Successful percutaneous transluminal coronary angioplasty stent of the left anterior descending diagonal and right coronary artery, both going from 70% initial stenosis with abnormal IFR to 0% residual. TRANSINT:[id number] Voice Confirmation ID: [id number] DOCUMENT ID: [id number] OPERATIVE REPORT [id number] JACQUI WEATHERS GUNNER GLYNN MD CC: [id number] DICTATION DATE: 06/14/19 1112 PEDIATRIC SOCIAL WORKER: 06/14/19 1226 [facility] [address] [facility] [place] [address]
--- NOTE | ~2019-06-14 | HEMODYNAMI ---
PATIENT:JACQUI WEAHTERS MEDICAL RECORD: [id number] : 45 LOCATION:D.CAT ADMISSION DATE: 06/14/19 Generatedon:06/14/201911:16 Patient name: JACQUI WEATHERS Patient #: [id number] : 1945 Date of study: 06/14/2019 Page: Of Hemodynamic Procedure Report Patient Data Patient Demographics First Name: JACQUI Gender: Female Last Name: JASIEL : 1945 Middle Initial: C Age: 74 year(s) Patient #: [id number] Race: Ethnicity: or SSN: [id number] Additional ID: [id number] Contact details [address]: [address] [place] [address] State: [place] City: [place] Zip code: [address] Past Medical History Allergies Allergen Reaction Date Comments Reported Iodine 02/10/2017 Sulfa drugs 02/10/2017 Other allergy 09/15/2017 Sulfa, Betadine Other allergy 06/14/2019 sulfa, betadine, Admission Admission Data Admission Date: 06/14/2019 Admission Time: 7:06 Arrival Date: 06/14/2019 Arrival Time: 0:00 Admit Source: Other Insurance Payor: Medicare, Private health insurance [facility] #: [id number] Height (in.): 62.99 BSA: 1.78 (m2) Height (cm.): 160 BMI: 29.3 (kg/m2) Weight (lbs.): 165.35 Weight (kg.): 75 Lab Results Lab Result Date: 06/14/2019 Lab Result Time: 0:00 Biochemistry Name Units Result Min Max BUN mg/dl 25 --(----)-* 7 18 Creatinine mg/dl 0.8 --(-*--)-- 0.6 1.3 eGFR ml/min 73.27336 *-(----)-- 90 120 NONAFRICAN CBC Name Units Result Min Max Hemoglobin g/dl 12 *-(----)-- 13.5 17.5 Procedure Procedure Types Cath Procedure Diagnostic Procedure [facility] w/Coronaries FFR/IVUS FFR Initial FFR Additional Sedation Charges Moderate Sedation up to 30 minutes PCI Procedure Coronary Stent Coronary Stent Initial x2 Procedure Description Procedure Date Procedure Date: 06/14/2019 Procedure Start Time: 10:39 Procedure End Time: 11:14 Procedure Staff Name Function Rob Gutierrez MD Performing Physician Ligia Brower RT Monitor Heron Linares RN Nurse Gris Luna RT Scrub Indication Severe dyspnea and shortness of breath Chest discomfort Procedure Data Cath Procedure Fluoroscopy Diagnostic fluoroscopy Total fluoroscopy Time: 9.8 time: 9.8 min min Diagnostic fluoroscopy Total fluoroscopy dose: dose: 1143 mGy 1143 mGy Contrast Material Contrast Material Type Amount (ml) Isovue 300 117 Entry Location Entry Primary Successful Side Size Upsize Upsize Entry Closure Castillo ccessful Closure Location (Fr) 1 (Fr) 2 (Fr) Remarks Device Remarks Radial Right 6 Fr Mechanical artery Short Compression Estimated blood loss: 5 ml Diagnostic catheters Device Type Used For End Catheter Placement DIAGNOSTIC Bethany 110cm 5 Procedure Fr catheter ([id number]) Procedure Complications No complications Procedure Medications Medication Administration Route Dosage Oxygen etCO2 Nasal cannula 2 l/min Lidocaine 2% added to field 20 Heparin Flush Bag added to field 2 bags (1000units/500ml NS) Zofran I.V. 4 mg 0.9% NaCl I.V. 100 ml/hr Versed I.V. 1 mg Fentanyl I.V. 50 mcg Radial Cocktail I.A. 1 syringe (Verapamil 2mg/Nitro 400mcg/Heparin 1500units) Versed I.V. 1 mg Fentanyl I.V. 50 mcg Heparin Bolus I.V. 4000 units Versed I.V. 1 mg Hemodynamics Rest BSA: 1.78 (m2) HGB: 12 (g/dl) O2 Consumption: Estimated: 156.99 (ml/min) O2 Cons umption indexed: Estimated:88.2 (ml/min/m) Heart Rate: 62 (bpm) Snapshots Pre Cath Intra NCS Post Cath Vital Signs Time Heart Resp SPO2 etCO2 NIBP (mmHg) Rhythm Pain Sedation Rate (ipm) (%) (mmHg) Status Level (bpm) 10:28:33 60 18 98 0 141/78(123) NSR 0 (11) 10(A) , No pain 10:32:54 57 19 100 35.9 131/73(119) NSR 0 (11) 10(A) , No pain 10:37:14 61 12 93 0 110/64(79) NSR 0 (11) 10(A) , No pain 10:41:28 73 15 94 0 98/57(74) NSR 0 (11) 9(A) , No pain 10:45:38 62 13 94 0 95/56(76) NSR 0 (11) 9(A) , No pain 10:49:45 58 14 95 0 102/60(76) NSR 0 (11) 9(A) , No pain 10:53:55 57 13 97 0 103/57(81) NSR 0 (11) 9(A) , No pain 10:58:03 59 11 94 0 108/63(79) NSR 0 (11) 9(A) , No pain 11:02:11 77 18 94 34.4 106/70(86) NSR 0 (11) 9(A) , No pain 11:06:23 57 15 98 0 124/61(99) NSR 0 (11) 10(A) , No pain 11:10:41 58 12 95 0 114/59(87) NSR 0 (11) 10(A) , No pain Medications Time Medication Route Dose Verified Delivered Reason Not es Effectiveness by by 10:29:11 Oxygen etCO2 2 l/min Rob Shelby used for Nasal Brenda Linares RN procedure cannula 10:29:18 Lidocaine 2% added 20ml Rob Rivas for local to vial Brenda Gutierrez MD anesthetic field 10:29:25 Heparin Flush added 2 bags Rob Rivas used for Bag to Brenda Gutierrez MD procedure (1000units/500ml field NS) 10:29:33 Zofran I.V. 4 mg Rob Shelby Per physician Pt states Brenda Linares RN that she has N/V after sedation medications. 10:29:41 0.9% NaCl I.V. 100 Robben Phippsie Per physician ml/hr Brenda Linares RN 10:36:40 Versed I.V. 1 mg Rob Shelby for sedation Brenda Linares RN 10:36:45 Fentanyl I.V. 50 mcg Rob Shelby for sedation Brenda Linares RN 10:36:54 Radial Cocktail I.A. 1 Rob Rivas for (Verapamil syringe Brenda Gutierrez MD vasodilation 2mg/Nitro 400mcg/Heparin 1500units) 10:46:29 Versed I.V. 1 mg Rob Rivas for sedation Brenda Gutierrez MD 10:46:32 Fentanyl I.V. 50 mcg Rob Rivas for sedation Brenda Gutierrez MD 10:57:40 Heparin Bolus I.V. 4000 Rob Shelby for jaclyn ified units Brenda Linares RN anticoagulation with dr gutierrez 11:04:12 Versed I.V. 1 mg Rob Shelby for sedation Brenda Linares RN Procedure Log Time Note 9:57:46 Admit Source: Other 9:57:50 Arrival Date: 06/14/2019 12:00:00 AM 9:58:14 Insurance Payor : Private health insurance, Medicare 9:58:21 Patient Height : 62.99 inches 9:58:25 Patient Weight : 165.35 lbs 9:59:17 Lab Result : Creatinine 0.8 mg/dl 9:59:17 Lab Result : BUN 25 mg/dl 9:59:17 Lab Result : eGFR NONAFRICAN 73.59219 ml/min 9:59:17 Lab Result : Hemoglobin 12 g/dl 10:00:16 Indication : Severe dyspnea and shortness of breath 10:00:46 Indication : Chest discomfort 10:01:10 ACC Patient presents with Unstable Angina CCS Anginal Class 3--Marked limitation of physical activity, angina occurs with ordinary activity.. 10:01:16 Time tracking: Regular hours (M-F 7:00 - 5:00) 10:01:21 Plan of Care:Hemodynamics will remain stable., Cardiac rhythm will remain stable., Comfort level will be maintained., Respiratory function will remain adequate., Patient/ family verbilizes understanding of procedure., Procedure tolerated without complication., Recovers from procedure without complications.. 10:01:28 2) 60-89 Mildly reduced kidney function, and other findings (as for stage 1) point to kidney disease. 10:02:19 Maximum allowable contrast dose (3.7 X eGFR X 0.75)205 ml. 10:13:53 Buffie Linares RN sent for patient. Start room use. 10:27:24 Patient received from Pre/Post Procedure Room to CCL 2 Alert and oriented. Tansferred to table in Supine position. 10:27:25 Warm blankets applied, and alfa hugger turned on for patient comfort. 10:27:26 Correct patient and procedure confirmed by team. 10:27:26 ECG and BP/O2 sat monitors applied to patient. 10::27 Vital chart was started 10::28 Baseline sample Acquired. 10:: Full Disclosure recording started 10::32 Rhythm: sinus rhythm 10::43 H&P Date Dictated: 06/14/2019 Within 30 days and on chart., H&P Addendum completed by physician on day of procedure. (MUST COMPLETE FOR ALL OUTPATIENTS). 10:27:45 Pre-procedure instructions explained to patient. 10:27:47 Family in waiting room. 10:27:49 Patient NPO since Midnight. 10:28:14 Patient allergic to Other allergysulfa, betadine, 10:28:26 Is the patient allergic to Iodine/contrast media? No. 10:28:27 Was the patient premedicated? Yes 10:28:29 Is patient on blood thinner?Yes 10:28:33 ACC The patient was administered the following blood thiners within the last 24 hours: ACCPlavix 10:28:36 Patient diabetic? No. 10:28:41 Snore? No 10:28:42 Sleep apnea? No 10:28:47 Dentures? No ? 10:29:11 Oxygen 2 l/min etCO2 Nasal cannula was administered by Heron Linares RN; used for procedure; Verbal order read back and verified. 10:29:18 Lidocaine 2% 20ml vial added to field was administered by Rob Gutierrez MD; for local anesthetic; Verbal order read back and verified. 10:29:25 Heparin Flush Bag (1000units/500ml NS) 2 bags added to field was administered by Rob Gutierrez MD; used for procedure; Verbal order read back and verified. 10:29:33 Zofran 4 mg I.V. was administered by Heron Linares RN; Per physician; Pt states that she has N/V after sedation medications. Verbal order read back and verified. 10:29:41 0.9% NaCl 100 ml/hr I.V. was administered by Heron Linares RN; Per physician; Verbal order read back and verified. 10:34:13 Previous problem with sedation/anesthesia? Yes nausea 10:34:33 Patient pain scale 0/10 ?. 10:34:40 IV patent on arrival in left forearm with 0.9% NaCl at [facility]. 10:34:44 Lab results completed and on chart. 10:35:10 Stress Test: no; N/A ? 10:35:20 Right Radial & Right Groin area was prepped with chlora-prep and draped in sterile fashion 10:35:22 Alarms reviewed by R. N. 10:35:22 Sharps counted by scrub and verified by R.N. 10:35:24 Physician arrived 10:35:24 --------ALL STOP TIME OUT------ 10:35:26 Final Timeout: patient, procedure, and site verified with staff and physician. All members of the team are in agreement. 10:35:29 Right Radial & Right Groin site verified by team. 10:35:33 Fire Safety Assessment: A--An alcohol-based skin anteseptic being used preoperatively., C--Open oxygen or nitrous oxide is being used., D--An ESU, laser, or fiber-optic light is being used. 10:35:38 Physical assessment completed. ASA score P 3 - A patient with severe systemic disease as per Rob Gutierrez MD. 10:35:43 Sedation plan: IV Moderate Sedation Medication:Versed, Fentanyl 10:36:40 Versed 1 mg I.V. was administered by Heron Linares RN; for sedation; Verbal order read back and verified. 10:36:45 Fentanyl 50 mcg I.V. was administered by Heron Linares RN; for sedation; Verbal order read back and verified. 10:36:54 Radial Cocktail (Verapamil 2mg/Nitro 400mcg/Heparin 1500units) 1 syringe I.A. was administered by Rob Gutierrez MD; for vasodilation; Verbal order read back and verified. 10:39:06 Use device set Radial Dx or PCI 10:39:08 ACIST Syringe (18840) opened to sterile field. 10:39:09 Medline Cath Pack ([id number]) opened to sterile field. 10:39:09 Bag Decanter (2001S) opened to sterile field. 10:39:09 ACIST Hand Control (45120) opened to sterile field. 10:39:10 ACIST Manifold (00337) opened to sterile field. 10:39:10 Tegaderm 4 x 4 (1626W) opened to sterile field. 10:39:12 MBrace Wrist Support ([id number]) opened to sterile field. 10:39:19 Zero performed for pressure channel P1 10:39:24 EMERALD Guide Wire (977-675) opened to sterile field. 10:39:24 SHEATH 6FR RAIN (4058417) opened to sterile field. 10:39:30 Procedure started. 10:39:46 Local anesthetic to right radial artery with Lidocaine 2% by Rob Gutierrez MD.INITIAL ACCESS ONLY 10:40:45 A 6 Fr Short sheath was inserted into the Right Radial artery 10:40:53 J wire advanced. 10:41:04 A DIAGNOSTIC Bethany 110cm 5 Fr catheter (070787) was advanced over the wire and used for Procedure. 10:41:47 LV angiography performed. 10:42:02 EF : 60 % 10:42:09 LCA angiography performed. 10:45:04 INFLATOR Merit BasixCompak (ME7425) opened to sterile field. 10:45:05 GUIDE 6FR XBLAD 3.5 catheter (60801669) opened to sterile field. 10:45:20 RCA angiography performed. 10:45:23 Catheter removed. 10:45:24 Proceeding to intervention. 10:45:34 6 Fr xblad3.5 guide catheter was inserted over the wire 10:46:29 Versed 1 mg I.V. was administered by Rob Gutierrez MD; for sedation; Verbal order read back and verified. 10:46:32 Fentanyl 50 mcg I.V. was administered by Rob Gutierrez MD; for sedation; Verbal order read back and verified. 10:52:27 IFR wire damaged. 10:52:51 new IFR wire advanced 10:53:09 Carmichael Verrata Plus pressure wire (11613G) opened to sterile field. 10:53:16 FFR/IFR wire advanced. 10:57:40 Heparin Bolus 4000 units I.V. was administered by Heron Linares RN; for anticoagulation; verified with dr gutierrez Verbal order read back and verified. 10:58:55 Inflate balloon Inflation number: 1 A EUPHORA 2.5 x 15 Balloon ([id number]) was prepped and advanced across the 1st Diag 70, then inflated to 13 CRISTINO for 0:08 (min:sec) . 11:00:31 Place stent Inflation Number: 2 A STONEY RX 2.5 x 08 stent ([id number]) was prepped and advanced across the 1st Diag 70. The stent was deployed at 13 CRISTINO for 0:05 (min:sec) 0. 11:01:10 Diag1 lesion measured at .76 with IFR 11:01:14 Wire removed. 11:01:26 GUIDE 6FR AR 2.0 catheter ([id number]) opened to sterile field. 11:01:40 Wire redirected to rca. 11:02:17 FFR/IFR wire advanced. 11:04:12 Versed 1 mg I.V. was administered by Heron Linares RN; for sedation; Verbal order read back and verified. 11:04:32 Wire advanced across lesion. 11:04:49 PDA lesion measured at .72 with IFR 11:06:21 Place stent Inflation Number: 1 A STONEY RX 2.25 x 30 stent ([id number]) was prepped and advanced across the R PDA 80. The stent was deployed at 13 CRISTINO for 0:06 (min:sec) . 11:08:36 Place stent Inflation Number: 2 A STONEY RX 2.0 x 8 stent ([id number]) was prepped and advanced across the R PDA 80. The stent was deployed at 0 CRISTINO for 0:07 (min:sec) 0. 11:11:01 ZEPHYR REGULAR TR BAND (012974) opened to sterile field. 11:11:08 ACT drawn and resulted at 240 seconds. (normal therapeutic range 180-240 seconds). 11:11:11 Wire removed. 11:11:11 Guide catheter removed. 11:11:20 Sheath removed intact; hemostasis achieved with Mechanical Compression to the Right Radial artery. 11:11:23 Procedure ended.(Physican Out) 11:11:35 Fluoroscopy time 09.80 minutes. 11:11:40 Fluoroscopy dose: 1143 mGy 11:11:40 Flurop Dose total: 1143 11:11:47 Dose Area Product 16884 mGy/cm. 11:11:55 Contrast amount:Isovue 300 117ml. 11:11:59 Maximum allowable dose exceeded? No. 11:12:00 Sharps counted by scrub and verified by R.N. 11:12:04 [place] band inflated with 10cc of air. 11:12:12 Post-op/insertion site Right Radial artery dressed using a 4 x 4 and Tegaderm. 11:12:16 Post Procedure Pulses reassessed and unchanged 11:12:21 Post-procedure physical assessment completed. ASA score P 2 - A patient with mild systemic disease as per Rob Gutierrez MD. 11:12:24 Post procedure rhythm: unchanged. 11:12:28 Estimated blood loss: 5 ml 11:12:31 Post procedure instruction explained to patient.Patient verbalizes understanding. 11:12:59 Procedure type changed to Cath procedure, Diagnostic procedure, LHC, C w/Coronaries, FFR/IVUS, FFR Initial, FFR Additional, Sedation Charges, Moderate Sedation up to 30 minutes, PCI procedure, Coronary Stent, Coronary Stent Initial x2 11:13:00 Procedure and supply charges have been captured, reviewed, submitted and are correct. 11:13:39 Procedure Complication : No complications 11:13:41 Vital chart was stopped 11:13:58 [facility] Findings: MVD- PCI performed (see procedure note) 11:14:01 Operative report dictated upon procedure completion. 11:14:02 See physician's report for complete and final results. 11:14:05 Report given to Pre/Post Procedure Room. 11:14:08 Patient transfered to Pre/Post Procedure Room with Stretcher. 11:14:10 Procedure ended. 11:14:10 Full Disclosure recording stopped 11:14:16 End room use (Document Last) Intervention Summary Intervention Notes Time ActionType Lesion and Equipment Used Action# Pressure Duration Attributes 10:58:55 Inflate 1st Diag EUPHORA 2.5 x 1 13 00:08 balloon 15 Balloon ([id number]) 11:00:31 Place stent 1st Diag STONEY RX 2.5 x 2 13 00:05 08 stent ([id number]) 11:06:21 Place stent R PDA STONEY RX 2.25 x 1 13 00:07 30 stent ([id number]) 11:08:36 Place stent R PDA STONEY RX 2.0 x 2 0 00:07 8 stent ([id number]) Device Usage Item Name Manufacture Quantity Catalog Hospital Part Current Minimal Lot# / Number Charge Number Stock Stock Serial# Code ACIST Syringe Acist 1 76439 128054 263002 305758 20 (13032) Medical Systems Inc Medline Cath Medline 1 [id number] 177603 77445 382221 5 Pack ([id number]) Bag Decanter Microtek 1 2001S 664071 60677 385947 5 (2001S) Medical Inc. ACIST Hand Acist 1 43629 199732 995147 138887 5 Control Medical (60274) Systems Inc ACIST Manifold Acist 1 77946 918137 415502 566469 5 (47945) Medical Systems Inc Tegaderm 4 x 4 3M 1 1626W 704570 746118 084380 5 (1626W) MBrace Wrist Advanced 1 140-0250-00 720690 74692 387554 5 Support Vascular ([id number]) Dynamics EMERALD Guide Cardinal 1 502-455 526384 618660 156905 5 Wire (502-455) Health SHEATH 6FR Cardinal 1 5178198 945381 3810907 076732 5 RAIN (6603395) Health DIAGNOSTIC Terumo 1 405013 130620 001567 505936 5 Bethany 110cm 5 Fr catheter (823205) INFLATOR Merit Merit 1 TR3407 299566 198679 708065 15 BasixComnhk Medical (SF1809) GUIDE 6FR Cardinal 1 [id number] 544781 632005 341858 10 XBLAD 3.5 Health catheter (86411552) Carmichael Carmichael 1 86493R 213381 [id number] 377207 5 [id number] Verrata Plus 014583 pressure wire (40533Q) EUPHORA 2.5 x Medtronic 1 [id number] 556648 894859 811851 5 [id number] 15 Balloon ([id number]) STONEY RX 2.5 x Medtronic 1 [id number] 900025 1893477 600010 5 [id number] 08 stent ([id number]) GUIDE 6FR AR Medtronic 1 [id number] 221761 38433 748467 1 2.0 catheter (TG2FF32) STONEY RX 2.25 x Medtronic 1 [id number] 498283 6264369 688801 5 [id number] 30 stent ([id number]) STONEY RX 2.0 x Medtronic 1 [id number] 981743 4505151 108487 5 [id number] 8 stent ([id number]) ZEPHYR REGULAR Cardinal 1 094887 417663 4382671 258718 5 BAND [facility] (329506) Signature Audit [place] Stage Time Signature Unsigned Intra-Procedure 06/14/2019 Ligia Brower 11:15:10 AM RT(R) Intra-Procedure 06/14/2019 Heron Linares RN 11:16:04 AM Intra-Procedure 06/14/2019 Rob Gutierrez 11:16:33 AM Signatures Performing Physician : Signature : Rob Gutierrez MD Date : Time : Monitor : Ligia Brower Signature : RT Date : Time : Nurse : Heron Linares RN Signature : Date : Time : [facility] [address]
[2019-06-14] MEDS ORDERED: HCTZ25 MG PO (07:29)
[2019-06-14] MEDS ORDERED: AVAPRO300 MG PO (07:29)
[2019-06-14] MEDS ORDERED: CARDIZEM120 MG PO (07:30)
[2019-06-14] MEDS ORDERED: PREMARIN VAG CREAM VG (07:31)
[2019-06-14 07:45] VITALS: BP 153/62; Ht 160 cm; Wt 75.9 kg
[2019-06-14 08:06] LABS: BASOPHILS 0.2 % (0-2); EOSINOPHILS 1.9 % (0-7); HEMATOCRIT 36.9 % (36.0-48.0); IMMATURE GRANULOCYTES 0.2 % (0-5); LYMPHOCYTES 24.1 % (15-50); MCH 30.5 pg (26.0-34.0); MCHC 32.5 g/dL (31.0-37.0); MCV 93.9 fL (80.0-100.0); MEAN PLATELET VOLUME 9.2 fL (7.4-10.4); MONOCYTES 10.3 % (2-11); NEUTROPHILS 63.3 % (40-80); PLATELET COUNT 241 10x3/uL (130-400); RBC 3.93 10x6/uL (4.00-5.40); RDW 14.1 % (11.5-14.5); WBC 8.5 10x3/uL (4.8-10.8)
[2019-06-14 08:15] LABS: ANION GAP 12.8 mmol/L (8-16); CALCIUM 9.5 mg/dL (8.5-10.1); CARBON DIOXIDE 27.9 mmol/L (21.0-32.0); CHOL - HDL RATIO 2.6 ratio (2.3-4.1); CREATININE - SERUM 0.8 mg/dL (0.6-1.3); LDL-HDL RATIO 1.4 ratio (1.5-3.5); POTASSIUM - SERUM 3.7 mmol/L (3.5-5.1)
--- NOTE | 2019-06-14 11:25 | NUR ---
PT RECEIVED VIA STRETCHER FROM HEAD SILVERMAN FOR RECOVERY. PT SLEEPING BUT VERBALLY AROUSABLE. PT DENIES PAIN OR NEEDS AT THIS TIME. IV PATENT INFUSING VIA L ARM. PT PLACED ON CARDIAC MONITORS AND O2 AT 2L/NC. HR SB RATE 55, BP 136/66, RR 13, SAT 95. ZYPHER BAND AND IMMOBILIZER TO R WRIST, DRESSING CDI NO BLEEDING OR S/S HEMATOMA NOTED. ARM PINK AND WARM, CAP REFILL BRISK. PT INSTRUCTED NOT TO USE R ARM, SHE VERBALIZED UNDERSTANDING. CALL LIGHT IN REACH
[2019-06-14] MEDS ORDERED: ASPIRIN81 MG PO (11:30)
--- NOTE | 2019-06-14 11:45 | NUR ---
PT RESTING W/O COMPLAINTS. Z BAND AND IMMOBILIZER IN PLACE TO R WRIST. DRESSING CDI NO BLEEDING OR S/S HEMATOMA NOTED. CAP REFILL BRISK. HOB ELEVATED PER REQUEST AND PO FLUIDS GIVEN. VSS. FAMILY AT BS, CALL LIGHT IN REACH
--- NOTE | 2019-06-14 12:26 | NUR ---
DR GLYNN AT BS, DISCUSSING W PT PLAN OF CARE AND PROCEDURE RESULTS. Z BAND AND IMMOBILIZER IN PLACE, DRESSING REMAINS CDI NO BLEEDING OR S/S HEMATOMA NOTED. VSS. PT DENIES NEEDS AT THIS TIME. CALL LIGHT IN REACH, FAMILY REMAINS AT BS.
--- NOTE | 2019-06-14 12:55 | NUR ---
PT PLACED ON BP, VOIDED 400 CC CLEAR YELLOW URINE W/O DIFFICULITY. PT REPOSITIONED IN BED, HOB UP AND SANDWICH TRAY SERVED. ZBAND AND IMMOBILIZER IN PLACE, DRESSING CDI NO BLEEDING OR SWELLING NOTED. CAP REFILL BRISK. CALL LIGHT IN REACH
--- NOTE | 2019-06-14 13:30 | NUR ---
PT SITTING UP IN BED TALKING W VISITORS. Z BAND AND IMMOBILIZER IN PLACE. DRESSING REMAINS CDI NO BLEEDING OR HEMATOMA NOTED. ARM PINK AND WARM, CAP REFILL BRISK. PT DENIES PAIN OR NEEDS AT THIS TIME. CALL LIGHT IN REACH. HR 66, BP 116/71, SAT 93 ON ROOM AIR. FAMILY REMAINS AT BS.
--- NOTE | 2019-06-14 14:10 | NUR ---
4CC AIR REMOVED FROM ZYPHER BAND, NO BLEEDING NOTED. CAP REFILL BRISK. VSS. PT DENIES PAIN OR NEEDS AT THIS TIME. CALL LIGHT IN REACH, FAMILY REMAINS AT BEDSIDE
--- NOTE | 2019-06-14 14:40 | NUR ---
4 ADD'L CC AIR REMOVED FROM Z BAND, NO BLEEDING OR S/S HEMATOMA NOTED. CAP REFILL BRISK. VSS. PT DENIES NEEDS.
--- NOTE | 2019-06-14 15:12 | NUR ---
IV REMOVED W CATH INTACT, MONITORS REMOVED AND PT AMBULATED TO . VOIDING W/O DIFFICULITY
--- NOTE | 2019-06-14 15:27 | NUR ---
DISCHARGE INSTRUCTIONS REVIEWED W PT, SHE VERBALIZED UNDERSTANDING. PT DRESSING FOR DISCHARGE
--- NOTE | 2019-06-14 15:37 | NUR ---
ZBAND AND REMAINING AIR REMOVED W/O BLEEDING. 2X2 AND TEGADERM DRESSING APPLIED. IMMOBILIZER RE POSITIONED. PT DISCHARGED VIA WC TO WAITING IN PRIVATE VEHICLE. PT HAD ALL BELONGINGS AND DISCHARGE INFORMATION.
== END 2019-06-14 15:35 | disposition home or self-care (01) ==
LOC: D.CATH 07:06
PROVIDERS: ATTEND Internal Medicine Interventional Cardiology
DX: I25.110 Atherosclerotic heart disease of native coronary artery with unstable angina pectoris (principal); R06.02 Shortness of breath; E78.5 Hyperlipidemia, unspecified; I10 Essential (primary) hypertension; R07.9 Chest pain, unspecified; G45.9 Transient cerebral ischemic attack, unspecified
CPT/HCPCS: 93458; 93571; 93572; C9600; C9601

== ENCOUNTER → 2020-10-06 14:25 | Outpatient (CLI) | payer MEDICARE, OTHER ==
[2020-06-22 09:20] VITALS: BMI 24.6
[~2020-10-06 14:25] MED LIST changes: +ARAVA10 MG PO; +ASPIRIN81 MG PO; +AVAPRO300 MG PO; +CARDIZEM120 MG PO; +CRESTOR10 MG PO; +HCTZ25 MG PO; +LEG CRAMP PO; +PREDNISONE50 MG PO; +PREMARIN VAG CREAM VG; +TOPROL XL25 MG PO; +TYLENOL ARTHRI650 MG PO
[2020-10-06 15:03] LABS: CREATININE - SERUM 0.7 mg/dL (0.6-1.3)
== END | disposition home or self-care (01) ==
LOC: D.CT 14:25
PROVIDERS: ATTEND Family Medicine
DX: R91.1 Solitary pulmonary nodule (principal)